=== PATIENT | female | born 1940 | race Caucasian/White ===

== ENCOUNTER 2022-09-18 10:03 | Day surgery (SDC) | payer MEDICARE, OTHER ==
[~2022-09-18] VITALS: Ht 160 cm; Wt 44.7 kg
[2022-09-18] MEDS ORDERED: MULTI-VITAMIN1 EAC2 (10:13)
[2022-09-18] MEDS ORDERED: THERA-D2000 UNIT (10:13)
[2022-09-18] MEDS ORDERED: Calcium Carbon500 MG (10:13)
== END 2022-09-18 11:40 | disposition home or self-care (01) ==
LOC: ORSCSDS 10:03
PROVIDERS: Internal Medicine Gastroenterology
PROC: 0DBK8ZX Excision of Ascending Colon, Via Natural or Artificial Opening Endoscopic, Diagnostic (ICD-10-PCS; principal; 2022-09-18 10:45)
PROC: 0DBH8ZX Excision of Cecum, Via Natural or Artificial Opening Endoscopic, Diagnostic (ICD-10-PCS; principal; 2022-09-18 10:45)
DX: Z12.11 Encounter for screening for malignant neoplasm of colon (principal); D12.0 Benign neoplasm of cecum; D12.2 Benign neoplasm of ascending colon; K57.50 Diverticulosis of both small and large intestine without perforation or abscess without bleeding; K64.8 Other hemorrhoids; Z86.010 Personal history of colon polyps; M85.80 Other specified disorders of bone density and structure, unspecified site
CPT/HCPCS: 88305; J2704; J7120